=== PATIENT | male | born 1980 | race Two or more races ===

== ENCOUNTER 2016-08-11 21:38 | Emergency (ER) | payer SELFPAY ==
[~2016-08-11] VITALS: Ht 175.3 cm; Wt 131.5 kg
[2016-08-11 22:10] VITALS: BP 135/90
[2016-08-11] MEDS ORDERED: DIPHTH,PERTUSS(ACELL),TET TOX 0.5 ML DISP.SYRIN. VAX IM ONE (23:30)
[2016-08-11] MEDS ORDERED: LIDOCAINE 1% / SOD BICARB 8.4% 20 ML VIAL. IJ ONE (23:30)
--- NOTE | 2016-08-11 23:58 | PHYS DOC ---
Past Medical History Past Medical History: STD, Other Additional Past Medical Histor: "BORDERLINE DIABETIC" Past Surgical History: Appendectomy, Other Additional Past Surgical Histo: PLASTIC SURGERY, TUMOR RMVL, Smokin Pack Per Day Alcohol Use: Occasionally Drug Use: Methamphetamine Adult General Chief Complaint Chief Complaint: LACERATION/AVULSION HPI HPI Patient is a 36 year old male who presents with laceration of the right ring finger at 2100. The patient was using a razor blade to fix a speaker accidentally cut his finger. He is unsure of his last tetanus immunization booster. He does not have a PCP. Review of Systems Review of Systems Constitutional: Denies fever or chills. [] Musculoskeletal: Denies back pain or joint pain. Reports right ring finger pain. Integument: Denies rash or skin lesions. Reports right ring finger laceration. Neurologic: Denies focal weakness or sensory changes. [] Current Medications Current Medications Current Medications Medications (Trade) Dose Ordered Sig/Hector Start Time Stop Time Status Last Admin Dose Admin Diphtheria/ Tetanus/Acell Pertussis (Boostrix) 0.5 ml ONCE ONCE 08/11/16 23:30 08/11/16 23:31 DC 08/11/16 23:30 0.5 ML Lidocaine/Sodium Bicarbonate (Buffered Lidocaine 1%) 20 ml 1X ONCE 08/11/16 23:30 08/11/16 23:31 DC 08/11/16 23:30 20 ML Allergies Allergies Allergies Coded Allergies Type Severity Reaction Last Updated Verified No Known Drug Allergies 01/18/15 No Physical Exam Physical Exam Constitutional: Well developed, well nourished, no acute distress, non-toxic appearance. [] HENT: Normocephalic, atraumatic, oropharynx moist. [] Eyes: PERRLA, EOMI, conjunctiva normal, no discharge. [] Skin: Warm, dry, no erythema, no rash. There is a 2 cm laceration of the right ring finger proximal phalanx on the palmar side. Extremities: Right ring finger tenderness, ROM intact, no edema. Less than 2 second capillary refill distally. Light touch sensation intact distally. Neurologic: Alert and oriented X 3, normal motor function, normal sensory function, no focal deficits noted. [] Psychologic: Affect normal, judgement normal, mood normal. [] Current Patient Data Vital Signs Vital Signs Date Time Temp Pulse Resp B/P Pulse Ox O2 Delivery O2 Flow Rate FiO2 08/11/16 22:10 97.7 97 18 99 Room Air 97.7 EKG EKG [] Radiology/Procedures Radiology/Procedures [] Course & Med Decision Making Course & Med Decision Making Pertinent Labs and Imaging studies reviewed. (See chart for details) Patient presents with a 2 cm laceration to the right ring finger proximal phalanx palmar surface. The wound was anesthetized with percent buffered lidocaine. The wound was explored for foreign bodies and none were identified. There was no tendon laceration. The wound was cleaned using chlorhexidine scrub and copiously irrigated using normal saline. Wound edges were well approximated using 5 simple interrupted sutures using 5-0 nylon. The patient tolerated the procedure well and bleeding was controlled. A sterile dressing was applied. Dragon Disclaimer Dragon Disclaimer This electronic medical record was generated, in whole or in part, using a voice recognition dictation system. Departure Departure Impression: Primary Impression: Finger laceration Disposition: HOME, SELF-CARE Condition: IMPROVED Referrals: NO PCP (PCP) Patient Instructions: Sutured Wound Care, [id number] Additional Instructions: Your wound was closed with nonabsorbable sutures. The sutures may get wet, however please do not submerge them in water. Please clean the wound was soaked and water only. Do not use peroxide or rubbing alcohol, as these will prolong the healing time. Please keep the wound covered with antibiotic ointment and a bandage. Please follow-up with primary care doctor in 10 days to have the sutures removed. Return to the emergency department if you have any new or concerning symptoms. Problem Qualifiers Primary Impression: Finger laceration Encounter type: initial encounter Qualified Code: S61.219A - Laceration without foreign body of unspecified finger without damage to nail, initial encounter SUSIE FAUSTIN Aug 11, 2016 23:58
== END 2016-08-12 00:05 | disposition home or self-care (01) ==
LOC: ER 21:38
DX: S61.214A Laceration without foreign body of right ring finger without damage to nail, initial encounter (principal); F17.200 Nicotine dependence, unspecified, uncomplicated; F15.10 Other stimulant abuse, uncomplicated; W45.8XXA Other foreign body or object entering through skin, initial encounter; Y93.89 Activity, other specified; Y92.89 Other specified places as the place of occurrence of the external cause; Y99.8 Other external cause status
CPT/HCPCS: 12001; 90471; 90715; 99283-25

== ENCOUNTER 2017-01-10 08:12 | Emergency (ER) | payer SELFPAY ==
[~2017-01-10] VITALS: Ht 175.3 cm; Wt 113.4 kg
[2017-01-10 09:25] VITALS: BP 169/105
--- NOTE | 2017-01-10 09:30 | PHYS DOC ---
Past Medical History Past Medical History: STD, Other Additional Past Medical Histor: "BORDERLINE DIABETIC" Past Surgical History: Appendectomy, Other Additional Past Surgical Histo: PLASTIC SURGERY, TUMOR RMVL, Alcohol Use: Occasionally Drug Use: Methamphetamine Adult General Chief Complaint Chief Complaint: SKIN PROBLEM HPI HPI Patient is a 36 year old male who presents with lesions to the chin in various stages of healing. Patient states that this began 3 days ago and has worsened. He initially thought that he was just acne that was itching and he tried to pop them, but they worsened and became painful. He thinks that his lymph nodes under his chin might be inflamed as well. He denies fever, nausea or other illness. Review of Systems Review of Systems Constitutional: Denies fever or chills [] HENT: Denies nasal congestion or sore throat [] Respiratory: Denies cough or shortness of breath [] Cardiovascular: No additional information not addressed in HPI [] Musculoskeletal: Denies back pain or joint pain [] Integument: History of present illness Neurologic: Denies headache, focal weakness or sensory changes [] Endocrine: Denies polyuria or polydipsia [] Allergies Allergies Allergies Coded Allergies Type Severity Reaction Last Updated Verified No Known Drug Allergies 01/18/15 No Physical Exam Physical Exam Constitutional: Well developed, well nourished, no acute distress, non-toxic appearance. [] HENT: Normocephalic, atraumatic, bilateral external ears normal, oropharynx moist, no oral exudates, nose normal. [] Eyes: PERRLA, EOMI, conjunctiva normal, no discharge. [] Neck: Mild anterior cervical adenopathy Cardiovascular:Heart rate regular rhythm, no murmur [] Lungs & Thorax: Bilateral breath sounds clear to auscultation [] Skin: Patient has numerous scattered lesions to chin, if you do have a white pustule while others have evidence of scratching and are in various stages of healing, there is erythema noted to chin Neurologic: Alert and oriented X 3, normal motor function, normal sensory function, no focal deficits noted. [] Psychologic: Affect normal, judgement normal, mood normal. [] Current Patient Data Vital Signs Vital Signs Date Time Temp Pulse Resp B/P (MAP) Pulse Ox O2 Delivery O2 Flow Rate FiO2 01/10/17 09:25 98.2 107 18 97 Room Air 98.2 EKG EKG [] Radiology/Procedures Radiology/Procedures [] Course & Med Decision Making Course & Med Decision Making Pertinent Labs and Imaging studies reviewed. (See chart for details) []1. Skin infection Patient is to keep skin clean and dry. Do not shave while these lesions are healing. The patient has been prescribed Keflex and mupirocin. Please take all antibiotics as directed. Follow-up with your primary care provider in one week or return to the ED if worsening. Dragon Disclaimer Dragon Disclaimer This electronic medical record was generated, in whole or in part, using a voice recognition dictation system. Departure Departure Referrals: NO PCP (PCP) Scripts Cephalexin (KEFLEX) 500 Mg Capsule 1 CAP PO BID, #14 CAP Prov: NAVEEN RECINOS APRN 01/10/17 Mupirocin (MUPIROCIN OINTMENT) 22 Gm Oint...g. 1 LENNY TP TID for WOUND CARE, #1 TUBE Prov: NAVEEN RECINOS APRN 01/10/17 NAVEEN RECINOS APRN Jan 10, 2017 09:30
[2017-01-10] MEDS ORDERED: CEPH-264 PO (09:42)
[2017-01-10] MEDS ORDERED: MUPI22OI2 TP (09:42)
--- NOTE | 2017-01-13 15:18 | VNOTE ---
CALL BACK NOTE CALL BACK Microbiology 01/10/17 Gram Stain - Final, Complete Patient was called at [phone]. Patient was advised to return call to discuss culture results. Patients antibiotic should be changed to Bactrim DS, 1 tablet BID x 10 days, Disp 20. Discussed case with charge nurse. SHAHZAD MANCUSO Jan 13, 2017 15:18
== END 2017-01-10 09:54 | disposition home or self-care (01) ==
LOC: ER 08:12
DX: L08.89 Other specified local infections of the skin and subcutaneous tissue (principal)
CPT/HCPCS: 87071; 87075; 87205; 99284

== ENCOUNTER 2017-12-21 14:46 | Emergency (ER) | payer SELFPAY ==
[~2017-12-21] VITALS: Ht 180.3 cm; Wt 113.4 kg
[~2017-12-21 14:46] MED LIST: CEPH-264 PO; MUPI22OI2 TP
--- NOTE | 2017-12-21 15:28 | PHYS DOC ---
Past Medical History Past Medical History: [place], STD, Other Additional Past Medical Histor: "BORDERLINE DIABETIC" Past Surgical History: Appendectomy, Other Additional Past Surgical Histo: PLASTIC SURGERY, TUMOR RMVL, Alcohol Use: Occasionally Drug Use: Methamphetamine Adult General Chief Complaint Chief Complaint: SKIN PROBLEM HPI HPI Patient is a 37 year old male presents to the ED complaining of rash to lower legs 1 week. 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 States sweating at work exacerbated the problem. States he does not know what the chemical is called. States he has had it in the past and it resolved on its own. States the rash has been improving over the last week but wanted to get it checked out. States he has not been taking medications [id number] or prescriptions. Patient also requesting a work note. Denies chest pain, shortness of breath, fever, weakness, dizziness, nausea/vomiting or abdominal pain. Review of Systems Review of Systems Constitutional: Denies fever or chills [] Eyes: Denies change in visual acuity, redness, or eye pain [] HENT: Denies nasal congestion or sore throat [] Respiratory: Denies cough or shortness of breath [] Cardiovascular: No additional information not addressed in HPI [] GI: Denies abdominal pain, nausea, vomiting, bloody stools or diarrhea [] : Denies dysuria or hematuria [] Musculoskeletal: Denies back pain or joint pain [] Integument: Complains of rash to lower legs. Denies skin lesions [] Neurologic: Denies headache, focal weakness or sensory changes [] All other systems were reviewed and found to be within normal limits, except as documented in this note. Current Medications Current Medications Current Medications Medications (Trade) Dose Ordered Sig/Hector Start Time Stop Time Status Last Admin Dose Admin Diphenhydramine HCl (Benadryl) 50 mg 1X ONCE 12/21/17 15:30 12/21/17 15:31 DC 12/21/17 15:23 50 MG Allergies Allergies Allergies Coded Allergies Type Severity Reaction Last Updated Verified No Known Drug Allergies 01/18/15 No Physical Exam Physical Exam Constitutional: Well developed, well nourished, no acute distress, non-toxic appearance. [] HENT: Normocephalic, atraumatic Eyes: PERRLA, EOMI, conjunctiva normal, no discharge. [] Neck: Normal range of motion, no tenderness, supple, no stridor. [] Cardiovascular:Heart rate regular rhythm, no murmur [] Lungs & Thorax: Bilateral breath sounds clear to auscultation [] Abdomen: Bowel sounds normal, soft, no tenderness, no masses, no pulsatile masses. [] Skin: Warm, dry, erythematous macular rash consistent with contact dermatitis to lower legs. Back: No tenderness, no CVA tenderness. [] Extremities: No tenderness, no cyanosis, no clubbing, ROM intact, no edema. [] Neurologic: Alert and oriented X 3, normal motor function, normal sensory function, no focal deficits noted. [] Psychologic: Affect normal, judgement normal, mood normal. [] Current Patient Data Vital Signs Vital Signs Date Time Temp Pulse Resp B/P (MAP) Pulse Ox O2 Delivery O2 Flow Rate FiO2 12/21/17 15:05 98.0 104 18 169/95 (119) 98 Room Air 98.0 EKG EKG [] Radiology/Procedures Radiology/Procedures [] Course & Med Decision Making Course & Med Decision Making Pertinent Labs and Imaging studies reviewed. (See chart for details) []Erythematous macular rash to lower legs bilaterally consistent with contact dermatitis. Will give Benadryl in the ED. Patient's symptoms improved in the ED. States he is feeling much better. We'll continue Benadryl outpatient. Discussed other symptomatic treatment and abstaining from chemical. Discussed follow-up this week. Provided contact information/education. Discussed reasons to return to the ED. Patient understands and agrees with plan. Work note provided. Dragon Disclaimer Dragon Disclaimer This electronic medical record was generated, in whole or in part, using a voice recognition dictation system. Departure Departure Impression: Primary Impression: Contact dermatitis Disposition: HOME, SELF-CARE Condition: IMPROVED Referrals: NO PCP (PCP) THAD JACOB MD Patient Instructions: Contact Dermatitis SHAHZAD MANCUSO Dec 21, 2017 15:28
[2017-12-21] MEDS ORDERED: diphenhydrAMINE 50 MG/ML VIAL IM ONE (15:30)
== END 2017-12-21 15:46 | disposition home or self-care (01) ==
LOC: ER 14:46
DX: L25.9 Unspecified contact dermatitis, unspecified cause (principal); I25.2 Old myocardial infarction; Z90.89 Acquired absence of other organs
CPT/HCPCS: 96372; 99283; J1200

== ENCOUNTER 2017-12-31 12:12 | Emergency (ER) | payer SELFPAY ==
[~2017-12-31] VITALS: Ht 180.3 cm; Wt 113.4 kg
[2017-12-31] MEDS ORDERED: ONDANSETRON PF 4 MG/2 ML VIAL. IV ONE (13:15)
[2017-12-31] MEDS ORDERED: DICYCLOMINE 20 MG/2 ML AMPUL. IM ONE (13:15)
--- NOTE | 2017-12-31 13:23 | PHYS DOC ---
Past Medical History Past Medical History: [place], STD, Other Additional Past Medical Histor: "BORDERLINE DIABETIC" Past Surgical History: Appendectomy, Other Additional Past Surgical Histo: PLASTIC SURGERY, TUMOR RMVL, Alcohol Use: Occasionally Drug Use: Methamphetamine Adult General Chief Complaint Chief Complaint: DIARRHEA HPI HPI 37-year-old male presents to ER with complaints of 4 day history of diarrhea and intermittent nausea. He denies any vomiting episodes. Patient reports he has had increased thirst however has had decreased urination. Patient reports he has had intermittent abdominal cramping throughout all abdomen, intermittent dizziness, and mild headache. Patient denies any visual changes or confusion. Patient reports feeling warm during nausea and diarrhea episodes denying any fever. Patient denies any recent travel or other family members with GI issues. Patient denies chest pain or palpitations. Patient reports he did take Pepto- Bismol yesterday denying any [id number] medications today for symptoms. Review of Systems Review of Systems Constitutional: Denies fever. Reports feeling warm during nausea and diarrhea episodes. Eyes: Denies change in visual acuity, redness, or eye pain [] HENT: Denies nasal congestion or sore throat [] Respiratory: Denies cough or shortness of breath [] Cardiovascular: Denies chest pain or palpitations GI: Denies vomiting, bloody stools. Reports intermittent nausea and diffuse abdominal cramping : Denies dysuria or hematuria. Reports decreased urination Musculoskeletal: Reports generalized body aches. Denies swelling Integument: Denies rash or skin lesions [] Neurologic: Denies focal weakness or sensory changes. Reports mild diffuse headache with intermittent dizziness Endocrine: Denies polydipsia [] All other systems were reviewed and found to be within normal limits, except as documented in this note. Current Medications Current Medications Current Medications Medications (Trade) Dose Ordered Sig/Hector Start Time Stop Time Status Last Admin Dose Admin Dicyclomine HCl (Bentyl) 20 mg 1X ONCE 12/31/17 13:15 12/31/17 13:19 DC 12/31/17 14:30 20 MG Ondansetron HCl (Zofran) 4 mg 1X ONCE 12/31/17 13:15 12/31/17 13:19 DC 12/31/17 14:29 4 MG Allergies Allergies Allergies Coded Allergies Type Severity Reaction Last Updated Verified No Known Drug Allergies 01/18/15 No Physical Exam Physical Exam Constitutional: Well developed, well nourished, no acute distress, non-toxic appearance.Clear speech HENT: Normocephalic, atraumatic, mucous membranes dry/pink. 3mm PERRL, no nystagmus Neck: Normal range of motion, no tenderness, supple, no gross adenopathy Cardiovascular:Heart rate regular rhythm, no murmur [] Lungs & Thorax: Bilateral breath sounds clear to auscultation. Resp. equal/ nonlabored Abdomen: Bowel sounds normal, soft/nondistended, diffuse mild tenderness in all abd- with increase in discomfort in lt upper/lower quad, no masses, no pulsatile masses. [] Skin: Warm, dry, no erythema, no rash. [] Back: No tenderness, mild bilat. CVA tenderness Extremities: No tenderness, no cyanosis, no clubbing, ROM intact, no edema. [] Neurologic: Alert and oriented X 3, normal motor function, normal sensory function, no focal deficits noted. [] Psychologic: Affect normal, judgement normal, mood normal. [] Current Patient Data Vital Signs Vital Signs Date Time Temp Pulse Resp B/P (MAP) Pulse Ox O2 Delivery O2 Flow Rate FiO2 12/31/17 12:46 98.5 95 18 128/90 (103) 98 Room Air 98.5 Lab Values Laboratory Tests Test 12/31/17 13:21 12/31/17 14:12 Glucose (Fingerstick) 282 mg/dL (70-99) H White Blood Count 8.7 x10^3/uL (4.0-11.0) Red Blood Count 5.82 x10^6/uL (4.30-5.70) H Hemoglobin 17.9 g/dL (13.0-17.5) H Hematocrit 51.3 % (39.0-53.0) Mean Corpuscular Volume 88 fL (79-100) Mean Corpuscular Hemoglobin 31 pg (25-35) Mean Corpuscular Hemoglobin Concent 35 g/dL (31-37) Red Cell Distribution Width 12.7 % (11.5-14.5) Platelet Count 280 x10^3/uL (140-400) Neutrophils (%) (Auto) 65 % (31-73) Lymphocytes (%) (Auto) 25 % (24-48) Monocytes (%) (Auto) 7 % (0-9) Eosinophils (%) (Auto) 2 % (0-3) Basophils (%) (Auto) 1 % (0-3) Neutrophils # (Auto) 5.7 x10^3uL (1.8-7.7) Lymphocytes # (Auto) 2.2 x10^3/uL (1.0-4.8) Monocytes # (Auto) 0.6 x10^3/uL (0.0-1.1) Eosinophils # (Auto) 0.1 x10^3/uL (0.0-0.7) Basophils # (Auto) 0.1 x10^3/uL (0.0-0.2) Urine Collection Type Unknown Urine Color Yellow Urine Clarity Clear Urine pH 6.5 Urine Specific [place] >=1.030 Urine Protein Negative mg/dL (NEG-TRACE) Urine Glucose (UA) >=1000 mg/dL (NEG) Urine Ketones (Stick) Negative mg/dL (NEG) Urine Blood Negative (NEG) Urine Nitrite Negative (NEG) Urine Bilirubin Negative (NEG) Urine Urobilinogen Dipstick 0.2 mg/dL (0.2 mg/dL) Urine Leukocyte Esterase Negative (NEG) Urine RBC 0 /HPF (0-2) Urine WBC 1-4 /HPF (0-4) Urine Squamous Epithelial Cells Few /LPF Urine Bacteria 0 /HPF (0-FEW) Urine Mucus Marked /LPF Sodium Level 139 mmol/L (136-145) Potassium Level 4.0 mmol/L (3.5-5.1) Chloride Level 102 mmol/L (98-107) Carbon Dioxide Level 29 mmol/L (21-32) Anion Gap 8 (6-14) Blood Urea Nitrogen 12 mg/dL (8-26) Creatinine 0.8 mg/dL (0.7-1.3) Estimated GFR (Cockcroft-Gault) 109.4 BUN/Creatinine Ratio 15 (6-20) Glucose Level 284 mg/dL (70-99) H Calcium Level 8.5 mg/dL (8.5-10.1) Total Bilirubin 0.4 mg/dL (0.2-1.0) Aspartate Amino Transferase (AST) 11 U/L (15-37) L Alanine Aminotransferase (ALT) 30 U/L (16-63) Alkaline Phosphatase 71 U/L (46-116) Total Protein 7.2 g/dL (6.4-8.2) Albumin 3.2 g/dL (3.4-5.0) L Albumin/Globulin Ratio 0.8 (1.0-1.7) L Lipase 122 U/L (73-393) Laboratory Tests 12/31/17 14:12 Laboratory Tests 12/31/17 14:12 EKG EKG [] Radiology/Procedures Radiology/Procedures [] Course & Med Decision Making Course & Med Decision Making Pertinent Labs reviewed. (See chart for details) 1500: RN reported prior to fluids patient's orthostatics were: Lying: BP 128/78 HR 93 Sittin/89 HR 95 Standing: BP 142/91 HR 93 Pt at this time following IV flds and txs received while in ER reports sxs much improved. He denies any dizziness and reports GRAHAM improved. He feels hungry and denies any diarrhea episodes while in ER. Discussed test results with plans for home discharge- will provide pt with Rx for Zofran ODT and Bentyl along with community clinics/physicians for f/u. Will provide work note per pt's request. Discharge instructions were discussed and education provided on s&s to return to ER for. Pt's case and plan of care was discussed with Dr. Singh. Too Disclaimer Too Disclaimer This electronic medical record was generated, in whole or in part, using a voice recognition dictation system. Departure Departure Impression: Primary Impression: Diarrhea Additional Impressions: Dehydration Nausea Disposition: 01 HOME, SELF-CARE Condition: STABLE Referrals: NO PCP (PCP) Patient Instructions: Dehydration, Adult, Diarrhea, Nausea, Adult, Smoking Cessation Additional Instructions: As discussed your blood sugar was 282 and you should have follow-up with a primary doctor to re-evaluate as you have past history of borderline diabetes. Adequate fluid intake and well balanced diet. Tylenol and/or ibuprofen as needed for pain as directed on container. Scripts Dicyclomine Hcl (DICYCLOMINE HCL) 10 Mg Capsule 10 MG PO QIDPRN, #12 CAP 0 Refills Prov: REFKETTY SIMS P[employer]IC EXTRUSION OPERATOR 12/31/17 Ondansetron (ZOFRAN ODT) 4 Mg Tab.rapdis 1 TAB SL Q8HRS, #10 TAB 0 Refills Prov: REFKETTY SIMS P[employer] EXTRUSION OPERATOR 12/31/17 Problem Qualifiers REFFITTKETTY APRN Dec 31, 2017 13:23
[2017-12-31 14:27] LABS: BASO # 0.1 x10^3/uL (0.0-0.2); BASO % 1 % (0-3); EOS # 0.1 x10^3/uL (0.0-0.7); EOS % 2 % (0-3); HEMATOCRIT 51.3 % (39.0-53.0); HEMOGLOBIN 17.9 g/dL (13.0-17.5); LYMPH # 2.2 x10^3/uL (1.0-4.8); LYMPH % 25 % (24-48); MEAN CORPUSCULAR HEMOGLOBIN 31 pg (25-35); MEAN CORPUSCULAR HGB CONC 35 g/dL (31-37); MEAN CORPUSCULAR VOLUME 88 fL (79-100); MONO # 0.6 x10^3/uL (0.0-1.1); MONO % 7 % (0-9); NEUT # 5.7 x10^3uL (1.8-7.7); NEUT % 65 % (31-73); PLATELET COUNT 280 x10^3/uL (140-400); RED BLOOD COUNT 5.82 x10^6/uL (4.30-5.70); RED CELL DISTRIBUTION WIDTH 12.7 % (11.5-14.5); WHITE BLOOD COUNT 8.7 x10^3/uL (4.0-11.0)
[2017-12-31 14:29] LABS: BILIRUBIN,URINE NEGATIVE (NEG); CLARITY,URINE CLEAR; COLOR,URINE YELLOW; NITRITE,URINE NEGATIVE (NEG); PH,URINE 6.5; PROTEIN,URINE NEGATIVE (NEG-TRACE); UROBILINOGEN,URINE 0.2 mg/dL (0.2 mg/dL)
[2017-12-31 14:37] LABS: BACTERIA,URINE 0 /HPF (0-FEW); RBC,URINE 0 /HPF (0-2); SQUAMOUS EPITHELIAL CELL,UR FEW /LPF
[2017-12-31 14:38] LABS: CALCIUM 8.5 mg/dL (8.5-10.1); CREATININE 0.8 mg/dL (0.7-1.3); GFR 109.4
[2017-12-31 14:44] LABS: ALBUMIN 3.2 g/dL (3.4-5.0); ALBUMIN/GLOBULIN RATIO 0.8 (1.0-1.7); TOTAL BILIRUBIN 0.4 mg/dL (0.2-1.0); TOTAL PROTEIN 7.2 g/dL (6.4-8.2)
[2017-12-31 15:00] VITALS: BP 155/78
[2017-12-31] MEDS ORDERED: ONDA4TAB10 SL (15:08)
[2017-12-31] MEDS ORDERED: DICY10CA3 PO (15:08)
== END 2017-12-31 15:30 | disposition home or self-care (01) ==
LOC: ER 12:12
DX: E86.0 Dehydration (principal); R19.7 Diarrhea, unspecified; R11.0 Nausea; R10.84 Generalized abdominal pain; R51 Headache; Z90.89 Acquired absence of other organs
CPT/HCPCS: 36415; 80053; 81001; 82962; 83690; 85025; 96372; 96374; 99284; J0500; J2405

== ENCOUNTER 2020-05-16 16:22 | Emergency (ER) | payer OTHER ==
[~2020-05-16] VITALS: Ht 177.8 cm; Wt 130.0 kg
[~2020-05-16 16:22] MED LIST changes: +DICY10CA3 PO; +ONDA4TAB10 SL
[2020-05-16 16:30] VITALS: BP 162/93
[2020-05-16] MEDS ORDERED: IV NORMAL SALINE 1000ML BAG 1,000 ML IV SCH (16:30)
[2020-05-16] MEDS ORDERED: ASPIRIN 325 MG TABLET PO ONE (16:30)
[2020-05-16] MEDS ORDERED: NITROGLYCERIN SUBLINGUAL 0.4 MG BOTTLE OF 25. SL PRN (16:30)
--- NOTE | 2020-05-16 16:37 | PHYS DOC ---
Past Medical History Past Medical History: SC, STD, Other Additional Past Medical Histor: "BORDERLINE DIABETIC" Past Surgical History: Appendectomy, Other Additional Past Surgical Histo: PLASTIC SURGERY, TUMOR RMVL, Smoking Status: Current Every Day Smoker Alcohol Use: Occasionally Drug Use: Methamphetamine General Adult EDM: Chief Complaint: CHEST PAIN HPI: HPI: Patient is a 40 year old male who presents with here per EMS for left chest pain and left arm pain that awoke him out of his sleep at 1540 this afternoon. He states that sharp and shooting. He states his left arm is been feeling numb and tingly for the last 2 months. He states that yesterday he started taking muscle relaxant and NSAIDs for a sprained back muscle. Patient states he takes no medication daily. He states he was short of breath but is no longer short of breath. Upon arrival patient is hyperventilating. Patient rates his pain a 7 out of 10. EMS did not give him aspirin prior to arrival. Patient states he did not take any medication prior to arrival. Patient has a history of hypertension, smoker, smoked meth last 5 days ago, diabetes, SC, STD, tumor removal, appendectomy. Patient currently denies shortness of breath, abdominal pain, nausea, vomiting, diarrhea, fever, cough, headache, dizziness, syncope, vision changes, focal weakness. Review of Systems: Review of Systems: Constitutional: Denies fever or chills. [] Eyes: Denies change in visual acuity. [] HENT: Denies nasal congestion or sore throat. [] Respiratory: Denies cough or +shortness of breath. [] Cardiovascular: + Left chest pain or denies edema. [] GI: Denies abdominal pain, nausea, vomiting, bloody stools or diarrhea. [] : Denies dysuria. [] Musculoskeletal: Denies back pain or joint pain. + Left arm pain with numbness and tingling [] Integument: Denies rash. [] Neurologic: Denies headache, focal weakness or sensory changes. [] Endocrine: Denies polyuria or polydipsia. [] Lymphatic: Denies swollen glands. [] Psychiatric: Denies depression or anxiety. [] Heart Score: HEART Score for Chest Pain: HEART Score for Chest Pain Response (Comments) Value History Moderately Suspicious 1 ECG Normal 0 Age < 45 0 Risk Factors >3 Risk Factors or Hx CAD 2 Troponin < Normal Limit 0 Total 3 Risk Factors: Risk Factors: DM, Current or recent (<one month) smoker, HTN, HLP, family history of CAD, obesity. Risk Scores: Score 0 - 3: 2.5% MACE over next 6 weeks - Discharge Home Score 4 - 6: 20.3% MACE over next 6 weeks - Admit for Clinical Observation Score 7 - 10: 72.7% MACE over next 6 weeks - Early Invasive Strategies Current Medications: Current Medications Medications (Trade) Dose Ordered Sig/Hector Start Time Stop Time Status Last Admin Dose Admin Aspirin (Gabbie Aspirin) 325 mg 1X ONCE 05/16/20 16:30 05/16/20 16:31 UNV Nitroglycerin (Nitrostat) 0.4 mg PRN Q5MIN PRN 05/16/20 16:30 UNV Sodium Chloride 1,000 ml @ 1,000 mls/hr Q1H 05/16/20 16:30 05/16/20 17:29 UNV Allergies: Allergies: Allergies Coded Allergies Type Severity Reaction Last Updated Verified No Known Drug Allergies 01/18/15 No Physical Exam: PE: Constitutional: Well developed, well nourished, no acute distress, non-toxic appearance. [] HENT: Normocephalic, atraumatic, bilateral external ears normal, oropharynx moist, no oral exudates, nose normal. [] Eyes: PERRLA, EOMI, conjunctiva normal, no discharge. [] Neck: Normal range of motion, no tenderness, supple, no stridor. [] Cardiovascular:Heart rate regular rhythm, no murmur [] Lungs & Thorax: Bilateral breath sounds clear to auscultation [] Abdomen: Bowel sounds normal, soft, no tenderness, no masses, no pulsatile masses. [] Skin: Warm, dry, no erythema, no rash. [] Back: No tenderness, no CVA tenderness. [] Extremities: No tenderness, no cyanosis, no clubbing, ROM intact, no edema. [] Neurologic: Alert and oriented X 3, normal motor function, normal sensory fu nction, no focal deficits noted. [] Psychologic: Affect normal, judgement normal, mood normal. Normal physical exam [] EKG: EK by Dr. Castro is sinus rhythm and no STEMI Radiology/Procedures: Radiology/Procedures: [] Impression: [facility] [address] [place] [address] IMAGING REPORT Signed PATIENT: ANDREA MALLORY ACCOUNT: [id number] : 1980 LOCATION: ER AGE: 40 SEX: M EXAM STATUS: REG ER ORD. PHYSICIAN: ALEXUS HINTON APRN REASON: Left sided chest pain PROCEDURE: PORTABLE CHEST 1V Single view chest dated 05/16/2020: No comparison available. Clinical Indication: Left-sided chest pain. Findings: Single upright portable exam of the chest was performed. Heart size and mediastinal contours are within normal limits given technique. The lungs are clear without evidence of focal consolidation. No apparent pleural effusion or pneumothorax. Impression:: Negative portable chest. Electronically signed by: Octavio Hyatt MD (05/16/2020 5:08 PM) [id number] DICTATED and SIGNED BY: OCTAVIO HYATT MD DATE: 05/16/20 [id number] [facility] [address] [facility] [place] [address] IMAGING REPORT Signed PATIENT: ANDREA MALLORY HACCOUNT: [id number] : 1980 LOCATION: ER AGE: 40 SEX: M EXAM STATUS: REG ER ORD. PHYSICIAN: ALEXUS HINTON APRN REASON: chest pain radiating through back PROCEDURE: CT ANGIOGRAPHY CHEST Exam: CT of chest with contrast INDICATION: Chest pain, radiating to back TECHNIQUE: Sequential axial images through the chest obtained following the administration 100 mL of Omni 350 IV contrast. Sagittal and coronal reformatted images were reconstructed from the axial data and reviewed. 3-D reformatted images were reconstructed from the axial data and reviewed. Comparisons: Chest x-ray same day FINDINGS: Visualized portions of the thyroid are unremarkable. No enlarged mediastinal lymph nodes are identified. Heart size is normal. No pericardial effusion. Thoracic aorta has a normal course and caliber. Pulmonary artery is not enlarged. No pulmonary embolus identified within the main, lobar or segmental pulmonary arteries. Airways are patent. No consolidation or pneumothorax. No suspicious lung nodules. No pleural effusion or thickening. Visualized upper abdomen is unremarkable. No suspicious osseous lesions or acute fractures. IMPRESSION: No pulmonary embolus identified within the main, lobar or segmental pulmonary arteries. Exposure: One or more of the following in the visualized dose reduction techniques were utilized for this examination: 1. Automated exposure control 2. Adjustment of the MA and/or KV according to patient size 3. Use of iterative of reconstructive technique Electronically signed by: French Mattson MD (05/16/2020 6:42 PM) [facility] DICTATED and SIGNED BY: FRENCH MATTSON MD DATE: 05/16/20 [id number] 0 Course & Med Decision Making: Course & Med Decision Making Pertinent Labs and Imaging studies reviewed. (See chart for details) See HPI. Alert and oriented x4. Ambulatory with a steady gait. No extremity edema. Lungs are clear auscultation all lobes. Patient is given 325 of aspirin in the ED. Speaks in full clear sentences. Skin pink warm and dry. Patient refusing nitro. Patient is refusing admission to the hospital for chest pain. Patient states his understanding that he could go home and possibly or have a disability from a cardiac event and he states his understanding. Patient is agreeing to have IV magnesium for his low magnesium level. Patient is also agreeing to have a CT a of the chest due to him now saying that his chest pain is radiating through to his back. When I asked the patient about the past SC that I saw in his chart he states that that was back when he was up in [place] and he was at a baseball game. He states that the EMS did a EKG on him and told him that he was having a heart attack but he refused to go to the hospital. He states they had him sign a AMA paper. He was never officially diagnosed with a heart attack and has never seen a account management assistant or follow-up. I have spoken to Dr. Castro concerning this patient, patient findings and continuation of care and the patient wanting to leave AMA. Again the patient did refuse admission to the hospital. I have ordered 2 g of magnesium IV for the patient. I ordered 30 mg of Toradol. Blood work unremarkable. Troponin negative. CTA chest shows no acute findings. Chest x-ray shows no acute findings. Patient refusing to stay for observation and he states his understanding of risks of leaving such as or disability. Patient is signed out AMA. [] Too Disclaimer: Dragfelipe Disclaimer: This electronic medical record was generated, in whole or in part, using a voice recognition dictation system. Departure Departure Impression: Primary Impression: Chest pain in adult Additional Impressions: Numbness and tingling in left arm Hypomagnesemia Disposition: 07 AMA/ELOPED/LWBS Condition: STABLE Referrals: NO PCP (PCP) ELIU GALINDO MD Patient Instructions: Chest Pain (Nonspecific), [id number], Hypomagnesemia Additional Instructions: Follow-up with a primary care provider. I have referred you to a account management assistant. If you begin having worsening pain or shortness of breath need to return to the emergency room. Do not take any drugs. Take all your medications as they are prescribed. ALEXUS HINTON APRN May 16, 2020 16:37
[2020-05-16 16:44] LABS: BASO % 0 % (0-3); EOS # 0.1 x10^3/uL (0.0-0.7); EOS % 1 % (0-3); HEMATOCRIT 52.6 % (39.0-53.0); HEMOGLOBIN 18.3 g/dL (13.0-17.5); LYMPH # 3.4 x10^3/uL (1.0-4.8); LYMPH % 41 % (24-48); MEAN CORPUSCULAR HEMOGLOBIN 30 pg (25-35); MEAN CORPUSCULAR HGB CONC 35 g/dL (31-37); MEAN CORPUSCULAR VOLUME 85 fL (79-100); MONO # 0.6 x10^3/uL (0.0-1.1); MONO % 7 % (0-9); NEUT # 4.3 x10^3/uL (1.8-7.7); NEUT % 51 % (31-73); PLATELET COUNT 296 x10^3/uL (140-400); RED BLOOD COUNT 6.18 x10^6/uL (4.30-5.70); RED CELL DISTRIBUTION WIDTH 12.9 % (11.5-14.5); WHITE BLOOD COUNT 8.4 x10^3/uL (4.0-11.0)
[2020-05-16 16:56] LABS: PROTHROMBIN TIME PATIENT 13.5 SEC (11.7-14.0)
[2020-05-16 17:01] LABS: CALCIUM 8.9 mg/dL (8.5-10.1); CREATININE 0.9 mg/dL (0.7-1.3); GFR 93.9
[2020-05-16 17:07] LABS: ALBUMIN 3.4 g/dL (3.4-5.0); ALBUMIN/GLOBULIN RATIO 0.9 (1.0-1.7); MAGNESIUM 1.6 mg/dL (1.8-2.4); TOTAL BILIRUBIN 0.7 mg/dL (0.2-1.0); TOTAL PROTEIN 7.2 g/dL (6.4-8.2)
--- NOTE | 2020-05-16 17:11 | RAD ---
Single view chest dated 05/16/2020: No comparison available. Clinical Indication: Left-sided chest pain. Findings: Single upright portable exam of the chest was performed. Heart size and mediastinal contours are with in normal limits given technique. The lungs are clear without evidence of focal consolidation. No annalise arent pleural effusion or pneumothorax. Impression:: Negative portable chest. Electronically signed by: Octavio Hyatt MD (05/16/2020 5:08 PM) [id number]
[2020-05-16] MEDS ORDERED: MAGNESIUM SULFATE 2GM 50 ML IV ONE (17:30)
[2020-05-16 17:37] LABS: AMPHETAMINE/METHAMPHETAMINE NEG (NEG); BARBITURATES NEG (NEG); BENZODIAZEPINES NEG (NEG); CANNABINOIDS NEG (NEG); COCAINE NEG (NEG); METHADONE NEG (NEG); OPIATES NEG (NEG); PHENCYCLIDINE NEG (NEG)
[2020-05-16] MEDS ORDERED: KETOROLAC 30 MG/ML VIAL. IVP ONE (17:45)
--- NOTE | 2020-05-16 18:10 | EKG ---
[facility] [address] [place] [address] Test Date: 2020-05-16 Test Time: 16:33:09 Pat Name: ANDREA MALLORY Department: Room: Gender: Saw Repairer: : 1980 Requested By: ALEXUS HINTON Order Number: [id number] Reading MD: Measurements Intervals [place] Rate: 87 P: 51 ID: [id number] QRS: 59 QRSD: 84 T: 88 QT: 376 QTc: 459 Interpretive Statements SINUS RHYTHM NORMAL ECG RI6.01 No previous ECG available for comparison
[2020-05-16] MEDS ORDERED: IOHEXOL 350 MG/ML 100 ML VIAL. IV ONE (18:15)
[2020-05-16] MEDS ORDERED: IV NORMAL SALINE 1000ML BAG 1,000 ML IV ONE (18:15)
[2020-05-16] MEDS ORDERED: CONTRAST GIVEN. MC PRN (18:30)
--- NOTE | 2020-05-16 18:44 | RAD ---
Exam: CT of chest with contrast INDICATION: Chest pain, radiating to back TECHNIQUE: Sequential axial images through the chest obtained following the administration 100 mL of Omni 350 IV contrast. Sagittal and coronal reformatted images were reconstructed from the axial data and reviewed. 3-D reformatted images were reconstructed from the axial data and reviewed. Comparisons: Chest x-ray same day FINDINGS: Visualized portions of the thyroid are unremarkable. No enlarged mediastinal lymph nodes are identifi ed. Heart size is normal. No pericardial effusion. Thoracic aorta has a normal course and caliber. Pulmon eric artery is not enlarged. No pulmonary embolus identified within the main, lobar or segmental pulmo nary arteries. Airways are patent. No consolidation or pneumothorax. No suspicious lung nodules. No pleural effusion or thickening. Visualized upper abdomen is unremarkable. No suspicious osseous lesions or acute fractures. IMPRESSION: No pulmonary embolus identified within the main, lobar or segmental pulmonary arteries. Exposure: One or more of the following in the visualized dose reduction techniques were utilized for this examination: 1. Automated exposure control 2. Adjustment of the MA and/or KV according to patient size 3. Use of iterative of reconstructive technique Electronically signed by: French Davis MD (05/16/2020 6:42 PM) [facility]
== END 2020-05-16 20:11 | disposition left against medical advice (07) ==
LOC: ER 16:22
DX: R07.89 Other chest pain (principal); R20.0 Anesthesia of skin; E83.42 Hypomagnesemia; R06.02 Shortness of breath; F17.200 Nicotine dependence, unspecified, uncomplicated; I25.2 Old myocardial infarction; Z90.89 Acquired absence of other organs
CPT/HCPCS: 36415; 71045; 71275; 80053; 80307; 82010; 83690; 83735; 83880; 84484; 85025; 85610; 93005; 96361; 96365; 96375; 99285; J1885; J3475; J7030; Q9967